=== PATIENT | female | born 1945 | race Caucasian/White ===

== ENCOUNTER 2018-09-22 17:54 | Emergency (ER) | payer MEDICARE, MEDICAID ==
[~2018-09-22] VITALS: Ht 160 cm; Wt 80.7 kg
[2018-09-22] MEDS ORDERED: KETOROLAC TROMETHAMINE 30 MG VIAL IM ONE (18:00)
[2018-09-22 18:15] VITALS: BP_SYST 169
--- NOTE | 2018-09-22 18:15 | NUR ---
Pt brought by self,A&Ox4,pt presents to ER with pain under L breast increasing with respirations, skin pink and warm, cap refill <3, VSS.
--- NOTE | 2018-09-22 18:15 | NUR ---
Patient to ER bed 5 to gown for evaluation. Side rails up. Report given to Edie GEORGES.
--- NOTE | 2018-09-22 18:20 | NUR ---
Dr Sharma at bedside examining patient
--- NOTE | 2018-09-22 18:20 | NUR ---
Patient arrived a&o x 3 via bls from home. Patient c/o of left sided cihest pain, VSS stable. No other complaints.
--- NOTE | 2018-09-22 18:25 | NUR ---
Medicated the patient with Toradol 3mg per MD order. Will reassess.
[2018-09-22 18:35] LABS: HEMATOCRIT 38.4 % (36-48); MEAN CORPUSCULAR HEMOGLOBIN 30 pg (27-31); MEAN CORPUSCULAR HGB CONC 34 % (32-36); MEAN CORPUSCULAR VOLUME 89 fL (79.0-98.0); PLATELET COUNT (AUTO) 357 K/uL (130-430); RED BLOOD CELL COUNT(AUTO) 4.32 MIL/uL (4.2-6.2); WHITE BLOOD COUNT (AUTO) 11.5 K/uL (4.8-10.8)
[2018-09-22 18:36] LABS: BASOPHILS # (AUTO) 0.1 K/uL (0.0-0.2); BASOPHILS % (AUTO) 0.5 % (0.0-2.0); EOSINOPHILS # (AUTO) 1.2 K/uL (0.0-0.4); EOSINOPHILS % (AUTO) 10.1 % (0.0-4.0); LYMPHOCYTES # (AUTO) 2.2 K/uL (1.0-5.5); LYMPHOCYTES % (AUTO) 19.5 % (20.5-51.5); MONOCYTES # (AUTO) 0.9 K/uL (0.0-1.0); MONOCYTES % (AUTO) 7.7 % (1.7-9.3); NEUTROPHILS # (AUTO) 7.1 K/uL (1.8-7.7); NEUTROPHILS % (AUTO) 62.2 % (40.0-70.0)
--- NOTE | 2018-09-22 18:40 | NUR ---
Patient reported 4/10 left sided chest pain. No other c/o. VSS are stable currently with for abd. CT.
[2018-09-22 18:45] LABS: CALCIUM 8.4 mg/dL (8.4-11.0); CREATININE 0.78 mg/dL (0.55-1.30); POTASSIUM 3.6 mmol/L (3.5-5.1)
[2018-09-22 18:49] LABS: ALBUMIN 3.1 g/dL (3.4-4.8); TOTAL BILIRUBIN 0.2 mg/dL (0.0-1.0)
--- NOTE | 2018-09-22 19:11 | NUR ---
[facility]
--- NOTE | 2018-09-22 19:11 | NUR ---
Pt AAOx4, even and non-labored respirations, denies c/o C/P or discomfort. No needs verbalized at this time. VSS.
--- NOTE | 2018-09-22 19:20 | NUR ---
Pt to CT via stretcher in stable condition.
--- NOTE | 2018-09-22 19:31 | NUR ---
Pt returns from CT, NAD, VSS. Warm blanket provided.
--- NOTE | 2018-09-22 21:00 | NUR ---
AAOx4, denies c/o C/P or discomfort, no needs verbalized at this time. Family member at bedside.
[2018-09-22 21:30] VITALS: BP_SYST 132
--- NOTE | 2018-09-22 21:30 | NUR ---
Patient given written and verbal discharge instructions and verbalizes understanding. ER MD discussed with patient the results and treatment provided. Patient in stable condition. ID arm band removed. IV catheter removed intact and dressing applied, no active bleeding. Rx of Ativan and Ibuprofen given. Patient educated on pain management and to follow up with PMD. Pain Scale 0/10. Opportunity for questions provided and answered. Medication side effect fact sheet provided.
== END 2018-09-22 21:30 | disposition home or self-care (01) ==
LOC: SED 17:54
DX: R07.89 Other chest pain (principal); R03.0 Elevated blood-pressure reading, without diagnosis of hypertension
CPT/HCPCS: 36415; 71045; 74176; 80053; 82150; 83690; 84484; 85025; 85610; 85730; 96372; 99284; J1885